=== PATIENT | male | born 1980 | race Caucasian/White ===

== ENCOUNTER 2017-11-25 11:11 | Outpatient (CLI) | payer OTHER | END 2017-11-25 11:12 | disposition home or self-care (01) | LOC: SC 11:11 | PROVIDERS: ATTEND Internal Medicine Pulmonary Disease | DX: G47.33 Obstructive sleep apnea (adult) (pediatric) (principal) | CPT/HCPCS: 99203; 99212 ==

== ENCOUNTER 2019-06-03 10:57 | Outpatient (CLI) | payer OTHER ==
[2019-06-03 12:08] VITALS: BP 120/80
--- NOTE | 2019-06-03 12:08 | SLEEP CARE CONSULTATION ---
Information from patient questionnaire entered by Odalis Ingram. I have reviewed and concur with the information entered by Odalis Ingram. This document represents the service I personally performed and the decisions made by me, Cecily Dukes, RN, MSN, STORE OPERATIONS ASSOCIATE. History of Present Illness Previous diagnosis: Moderate, Obstructive Sleep Apnea-Hypopnea Syndrome AHI: 24.1 Reason for CPAP/BiPAP follow up: annual Equipment type: CPAP Equipment obtained from: [employer] Mask style: Nasal (Wisp) Mask brand: Respironics Backup mask available: Yes Last cushion change: about 2 weeks ago CPAP Compliance Data - Data Reviewed with Patient Average duration of nightly device use: 7.7 Compliance rate %: 76 (180 days) Current pressure setting (cmH2O): 9 Humidity settin Average residual AHI: 0.8 Average large leak: 6.7 liters per minute Subjective Missed days of use due to: reports: [place] Patient concerns: reports: aerophagia (every morning, wakes with bloated and burps with relief ), nasal congestion, epistaxis (rare). denies: mask discomfort, air blowing in eyes, mask leak noise, condensation in mask/hose, dry mouth, nose, throat Observed to snore while using device: Yes (occasional ) Current pressure setting perceived as: comfortable On therapy, patient: reports: sleeping better, awakening more refreshed, being more awake and alert during the day, more rested overall. denies: drowsiness while driving Initial [place] Sleepiness Scale score: 17 Current [place] Sleepiness Scale score: 19 Allergies and Home Medications Known drug allergies: No Home medication list reviewed: Yes (cautioned of effects of pain med / muscle relaxant to apnea ) Allergy and home medication list: Naproxen 250mg tab three daily prn Flexeril 10mg tab one at bedtime prn Percocet 5-325mg tab one as needed for pain prn Review of Systems Review of systems same as previous: Yes Physical Exam Blood Pressure: 120/80 Cuff size: long Heart Rate: 93 O2 Saturation: 97 Height: 5 ft 10 in Weight: 230 lb Body Mass Index: 33.0 BMI Classification: Obesity Class 1 Impression and Plan 1. Obstructive Sleep Apnea-Hypopnea Syndrome, moderate , with good treatment compliance and good apnea control. On CPAP therapy, the patient has better sleep quality and is more rested overall. To reduce not using CPAP [place], I discussed battery options. A reference sheet on battery options that he could use was given. He is to turn off humidity when using this method to reduce power use. For aerophagia, I will reduce his CPAP pressure to 7cmH20. He is to contact me if still still symptoms or pressure uncomfortable. For his cleaning questions, I answered and gave a reference sheet of cleaning suggestions. For nasal congestion, he is to increase his humidity. He is also advised to showed at night to wash off body allergens and facilitate nasal drainage. He can also use saline nasal spray to clear nasal secretions. Patient's apnea severity and rationale for treatment to reduce apnea, improve sleep quality and reduce cardiovascular and cerebrovascular events was reviewed. I also reviewed the benefit of consistent device use of CPAP for gastric reflux. He was also cautioned not to drive when tired. I also discussed how his current weight gain and obesity can increase his apnea risk and overall health risks. He is advised to lose weight. * * Change CPAP pressure to 7 cmH2O * Adjust humidity * Implement cleaning methods discussed. * Notify me if snoring with mask or feeling that the pressure is too much or too little * Attempt to lose weight * Return for follow up in 2 months , or sooner if concerns arise I spent 100% of this 30 minute visit face to face with the patient with greater than 50% of this was spent time counseling the patient and coordination of care.
== END 2019-06-03 10:58 | disposition home or self-care (01) ==
LOC: SC 10:57
PROVIDERS: ATTEND Nurse Practitioner Family
DX: G47.33 Obstructive sleep apnea (adult) (pediatric) (principal); E66.9 Obesity, unspecified; Z68.33 Body mass index [BMI] 33.0-33.9, adult
CPT/HCPCS: 99212; 99214

== ENCOUNTER 2019-08-10 10:10 | Outpatient (CLI) | payer OTHER ==
--- NOTE | 2019-08-10 10:53 | SLEEP CARE CONSULTATION ---
Information from patient questionnaire entered by Odalis Ingram. I have reviewed and concur with the information entered by Odalis Ingram. This document represents the service I personally performed and the decisions made by me, Cecily Dukes, RN, MSN, MECHANICAL FACILITIES TECHNICIAN. History of Present Illness Previous diagnosis: Moderate, Obstructive Sleep Apnea-Hypopnea Syndrome AHI: 24.1 Reason for follow up: other (2 month ) Equipment type: CPAP Equipment obtained from: [employer] Mask style: Nasal Mask brand: hhgregg HPI additional information: The increase in humidity and use of saline nasal spray reduced nasal congestion. The CPAP pressure change was more comfortable. He is now able to use the CPAP longer and wakes more refreshed and more rested. He was also able to obtain a battery for use when no electricity. CPAP Compliance Data - Data Reviewed with Patient Average duration of nightly device use: 8.75 Compliance rate %: 97 (60 days) Current pressure setting (cmH2O): 7 Humidity settin Average residual AHI: 0.7 Average large leak: 3.5 liters per minute Subjective Patient concerns: denies: aerophagia, mask discomfort, air blowing in eyes, mask leak noise, condensation in mask/hose, nasal congestion, dry mouth, nose, throat, epistaxis Observed to snore while using device: No Current pressure setting perceived as: comfortable On therapy, patient: reports: sleeping better, awakening more refreshed, being more awake and alert during the day, more rested overall. denies: drowsiness while driving Initial [place] Sleepiness Scale score: 17 Current [place] Sleepiness Scale score: 11 Allergies and Home Medications Known drug allergies: Yes (oral contrast ) Home medication list reviewed: No (none) Physical Exam Blood Pressure: 110/80 Cuff size: long Heart Rate: 74 O2 Saturation: 97 Height: 5 ft 10 in Weight: 227 lb 3.2 oz Weight change since last visit: lost 3 pounds Body Mass Index: 32.5 BMI Classification: Obesity Class 1 Impression and Plan 1. Obstructive Sleep Apnea-Hypopnea Syndrome, moderate, with good treatment compliance and good apnea control. On CPAP therapy, the patient has better sleep quality and is more rested overall with changes implemented in reduction of pressure and control of nasal congestion. He is anxious to try out his new battery with working in remote locations. He is aware not to use the humidifier with the battery as it drwas too much power. He is also advised to use the saline nasal spray prior to CPAP for moisture. In addition, he is advised to make sure has spare filters for increase dust in [place] area. Patient's apnea severity and rationale for treatment to reduce apnea, improve sleep quality and reduce cardiovascular and cerebrovascular events was reviewed. * Continue CPAP pressure at 7cmH2O * Notify me if snoring with mask or feeling that the pressure is too much or too little * Attempt to lose weight * Call this office if any problems using CPAP * Return for follow up in 6 months , or sooner if concerns arise I spent 100% of this 15 visit face to face with the patient with greater than 50% of this was spent time counseling the patient and coordination of care.
[2019-08-10 10:54] VITALS: BP 110/80
== END 2019-08-10 10:11 | disposition home or self-care (01) ==
LOC: SC 10:10
PROVIDERS: ATTEND Nurse Practitioner Family
DX: G47.33 Obstructive sleep apnea (adult) (pediatric) (principal); E66.9 Obesity, unspecified; Z68.32 Body mass index [BMI] 32.0-32.9, adult
CPT/HCPCS: 99212; 99213

== ENCOUNTER 2020-07-18 10:13 | Outpatient (CLI) | payer OTHER ==
--- NOTE | 2020-07-18 11:31 | SLEEP CARE CONSULTATION ---
Information from patient questionnaire entered by Odalis Ingram. I have reviewed and concur with the information entered by Odalis Inrgam. This document represents the service I personally performed and the decisions made by me, Denae Felton MD, [facility]. History of Present Illness Service Date and Time: 07/18/2020 1013 Previous diagnosis: Moderate, Obstructive Sleep Apnea-Hypopnea Syndrome AHI: 24.1 (in 2016) Reason for follow up: annual (last seen ) Equipment type: CPAP Equipment obtained from: [employer] Mask style: Nasal Prior sleep studies: Yes Year and Where: 2016 - [facility] Sleep lab Type of Sleep Study: Polysomnography HPI additional information: HPI: Mr. Mckay is a 37 year old gentleman who had a sleep study at [facility] 2 years ago showing moderate obstructive sleep apnea-hypopnea with an AHI of 24.1 and rafa oxygen saturation of 88%. He was started on CPAP therapy. He wears a Respironics Wisp nasal mask. He finds the treatment very beneficial. No snore through the CPAP. His ResMed AirSense 10 is set at 7 cmH2O. The compliance data show usage in 346 out of the past 365 nights, averaging 8.3 hours a night. The > 4 hour compliance rate for the past 30 days is 92%. The residual AHI is 0.9 and average air leak is 1.1 L/minute. His durable medical supplier is [employer]. He reports improvement in his sleep quality, and that he wakes up feeling fresher in the morning and more awake/alert during the day. [place] Sleepiness Scale score is 8. CPAP Compliance Data - Data Reviewed with Patient Average duration of nightly device use: 8 hr 16 min Compliance rate %: 88 (180 days) Current pressure setting (cmH2O): 7 Humidity settin Average residual AHI: 1.0 Subjective Missed days of use due to: reports: family emergency, mask issues, travel Patient concerns: reports: mask leak noise, nasal congestion, dry mouth, nose, throat Initial [place] Sleepiness Scale score: 17 (in 2018) Current [place] Sleepiness Scale score: 8 Allergies and Home Medications Drug allergies reviewed: Yes Home medication list reviewed: Yes Review of Systems Review of systems same as previous: Yes Physical Exam Vital signs obtained and entered by: To minimize the risk of COVID-19 exposure, detailed exam was not performed. Height: 5 ft 10 in Weight: 182 lb Body Mass Index: 26.1 BMI Classification: Overweight Impression and Plan IMPRESSION: 1. Obstructive Sleep Apnea-Hypopnea Syndrome, moderate, with the patient continuing to do well on nasal CPAP therapy. He has good compliance and significant clinical improvement. The current pressure appears effective and comfortable. His mask fits well. Overall, he is very satisfied with treatment and plans to continue with it long-term. No adjustment is necessary today. PLAN: 1. Continue with CPAP set at 7 cmH2O. 2. Try to lose weight 3. Try ResMed N30i mask or Respironics DreamWear nasal cushion mask 4. Prescription made for supplies. 5. Return for follow up in a year or earlier if there is any problem. He will be eligible for a new machine at that time. Visit Type: In Office Time Spent with Patient (minutes): 15 Provider Statement: I spent 100% of the Face to Face Visit with the patient with greater than 50% spent counseling the patient and coordination of care.
== END 2020-07-18 10:14 | disposition home or self-care (01) ==
LOC: SC 10:13
PROVIDERS: ATTEND Internal Medicine Pulmonary Disease
DX: G47.33 Obstructive sleep apnea (adult) (pediatric) (principal); E66.3 Overweight; Z68.26 Body mass index [BMI] 26.0-26.9, adult
CPT/HCPCS: 99212; 99213

== ENCOUNTER 2022-08-27 10:38 | Outpatient (CLI) | payer OTHER ==
[2022-08-27 19:48] VITALS: BP 138/92
--- NOTE | 2022-08-27 19:48 | SLEEP CARE CONSULTATION ---
Information from patient questionnaire entered by Viviane Gracia. I have reviewed and concur with the information entered by Viviane Gracia. This document represents the service I personally performed and the decisions made by me, Denae Felton MD, [facility]. History of Present Illness Service Date and Time: 08/27/2022 1038 Previous diagnosis: Moderate, Obstructive Sleep Apnea-Hypopnea Syndrome AHI: 24.1 (in 2015) Reason for follow up: annual (LAST SEEN 07/2020) Equipment type: CPAP (RESMED SD CARD NEEDED) Equipment obtained from: [employer] Mask style: Nasal Prior sleep studies: Yes Year and Where: 2015 - [facility] Sleep lab Type of Sleep Study: Polysomnography HPI additional information: Mr. Mckay is a 37 year old gentleman who had a sleep study at [facility] 6 years ago showing moderate obstructive sleep apnea-hypopnea with an AHI of 24.1 and rafa oxygen saturation of 88%. He was started on CPAP therapy. He wears a Respironics Wisp nasal mask. He finds the treatment very beneficial. No snore through the CPAP. His ResMed AirSense 10 is set at 7 cmH2O. The compliance data show usage in 160 out of the past 180 nights, averaging 7.2 hours a night. The > 4 hour compliance rate for the past 30 days is 92%. The residual AHI is 0.9 and average air leak is 0.5 L/minute. His durable medical supplier is [employer]. He reports improvement in his sleep quality, and that he wakes up feeling fresher in the morning and more awake/alert during the day. Sleep Study - Results Type of Sleep Study: Polysomnography Prior sleep studies: Yes Year and Where: 2015 - [facility] Sleep lab Subjective Initial [place] Sleepiness Scale score: 17 (in 2018) Current [place] Sleepiness Scale score: 2 (08/27/22) Allergies and Home Medications Drug allergies reviewed: Yes Home medication list reviewed: Yes Allergy and home medication list: Allergies oral contrast Adverse Reaction (Uncoded 09/22/15 15:50) Hives Review of Systems Review of systems same as previous: Yes Physical Exam Vital signs obtained and entered by: VIVIANE Quintana MA Blood Pressure: 138/92 (LEFT ARM) Cuff size: regular Heart Rate: 61 O2 Saturation: 97 Height: 5 ft 10 in Weight: 235 lb Body Mass Index: 33.7 BMI Classification: Obese Impression and Plan IMPRESSION: 1. Obstructive Sleep Apnea-Hypopnea Syndrome, moderate, with the patient continuing to do well on nasal CPAP therapy. He has good compliance and significant clinical improvement. The current pressure appears effective and comfortable. His mask fits well. Overall, he is very satisfied with treatment and plans to continue with it long-term. No adjustment is necessary today. Because the CPAP is now older than the useful life of 5 years, I will order the patient a new one and make it an autoCPAP set between 4 and 8 cmH2O. PLAN: 1. Continue with CPAP set at 7 cmH2O. 2. Prescription made for an autoCPAP, heated humidifier, and related supplies. 3. Return for follow up after one month of using the CPAP. Prescriptions: Auto CPAP Follow up with Sleep Care in: 3 months Visit Type: In Office Time Spent with Patient (minutes): 15 Provider Statement: I spent 100% of the Face to Face Visit with the patient with greater than 50% spent counseling the patient and coordination of care.
== END 2022-08-27 10:39 | disposition home or self-care (01) ==
LOC: SC 10:38
PROVIDERS: ATTEND Internal Medicine Pulmonary Disease
DX: G47.33 Obstructive sleep apnea (adult) (pediatric) (principal); E66.9 Obesity, unspecified; Z68.33 Body mass index [BMI] 33.0-33.9, adult
CPT/HCPCS: 99212

== ENCOUNTER 2024-02-21 08:52 | Outpatient (CLI) | payer OTHER ==
--- NOTE | 2024-02-21 09:26 | Sleep Patient Instructions ---
Sleep Center Visit Summary - Patient Visit Information Reason for Visit: Annual follow-up - Patient Instructions Additional Instructions: You will continue with CPAP therapy with pressure set at 4-8 cmH2O. A supply prescription will be updated with your DME. We encourage you to continue to try to lose weight. Please follow up with the sleep care office in 1 year. - Clinic Information Contact: [facility] [address] [place] [address] [email or web address] T: [phone]
--- NOTE | 2024-02-21 09:32 | SLEEP CARE CONSULTATION ---
Information from patient questionnaire entered by Carmen Gracia. I have reviewed and concur with the information entered by Carmen Gracia. This document represents the service I personally performed and the decisions made by , Ellen Egan ARNP. History of Present Illness Service Date and Time: 02/21/2024 0852 Previous diagnosis: Moderate, Obstructive Sleep Apnea-Hypopnea Syndrome AHI: 24.1 (in 2015) Reason for follow up: annual (LAST SEEN 08/2022) Equipment type: CPAP (RESMED Airsense 11, s/u 12/2022, SD CARD NEEDED) Equipment obtained from: [employer] (getting supplies) Mask style: Nasal Backup mask available: Yes (old mask) Last cushion change: 10 days Prior sleep studies: Yes Year and Where: [facility] [place][note 2[place] - [facility] Sleep lab Type of Sleep Study: Polysomnography HPI additional information: GM DIEZ was diagnosed to have moderate, AHI 24.1, obstructive sleep apnea- hypopnea syndrome and returned today for CPAP therapy annual follow-up. Sleep Study - Results Type of Sleep Study: Polysomnography Prior sleep studies: Yes Year and Where: [facility]– [place][note 2] - [facility] Sleep lab CPAP Compliance Data - Data Reviewed with Patient Average duration of nightly device use: 7 hours 29 minutes Compliance rate %: 83 (155/180 days used) Current pressure setting (cmH2O): 4-8 Average residual AHI: 0.7 Central apnea: 0.2 Obstructive apnea: 0.3 Hypopnea: 0.1 Average large leak: 0.3 L/min Subjective Missed days of use due to: reports: travel Patient concerns: reports: aerophagia (little bit), mask discomfort (doesn't like stuff being on his face), air blowing in eyes, nasal congestion, dry mouth, nose, throat (occasional, does not use humidifier). denies: mask leak noise, condensation in mask/hose, epistaxis Observed to snore while using device: No Current pressure setting perceived as: comfortable On therapy, patient: reports: sleeping better, awakening more refreshed, being more awake and alert during the day, more rested overall. denies: drowsiness while driving Initial [place] Sleepiness Scale score: 17 (in 2018) Current [place] Sleepiness Scale score: 8 Allergies and Home Medications Known drug allergies: Yes (as listed) Drug allergies reviewed: Yes Home medication list reviewed: Yes (no changes) Allergy and home medication list: Allergies oral contrast Adverse Reaction (Uncoded 02/19/24 13:43) Hives Review of Systems Review of systems same as previous: Yes (no changes) Physical Exam Vital signs obtained and entered by: Ellen Quiroga NP Blood Pressure: 141/90 Cuff size: regular (left arm) Heart Rate: 78 O2 Saturation: 97 Height: 5 ft 10 in Weight: 223 lb 3.2 oz Weight change since last visit: 12 lb loss Body Mass Index: 32.0 BMI Classification: Obese Impression and Plan 1. Obstructive Sleep Apnea-Hypopnea Syndrome, moderate, with good treatment compliance and good apnea control. On CPAP therapy, the patient has better sleep quality and is more rested overall. He states he does not use the humidifier because it caused a lot more sinus drainage vomiting. He does get little bit dr y and has some nasal congestion but says it has been improved over time as he got used to it. He gets occasional bloating in the morning that resolves within an hour and is not uncomfortable. He does not like to have something on his face but he will continue to use his CPAP long-term because he knows he has sleep apnea and it will benefit his health to continue treatment. There is not adjustments needed today. Patient has significant improvement of his sleep apnea and is satisfied with current CPAP therapy. Patient's apnea severity and rationale for treatment to reduce apnea, improve sleep quality and reduce cardiovascular and cerebrovascular events was reviewed. 2. Obesity, unspecified. Currently patients BMI is 32. He has lost weight. Obesity increases the risk of apnea, CPAP pressure requirements and overall health risks especially cardiovascular and diabetes. Thus patient is advised to continue to try to lose weight. * Continue CPAP pressure at 4-8 cmH2O * Update supply prescription. * Notify me if snoring with mask or feeling that the pressure is too much or too little * Attempt to lose weight * Call this office if any problems using CPAP * Return for follow up in 12 months, or sooner if concerns arise Counseling Topics: Spare mask, Weight loss health impact Prescriptions: Device supplies Follow up with Sleep Care in: 1 year Visit Type: In Office Time Spent with Patient (minutes): 18 Provider Statement: I spent 100% of the Face to Face Visit with the patient with greater than 50% spent counseling the patient and coordination of care.
[2024-02-21 09:38] VITALS: BP 141/90; O2SAT 97
== END 2024-02-21 08:53 | disposition home or self-care (01) ==
LOC: SC 08:52
PROVIDERS: ATTEND Nurse Practitioner Family
DX: G47.33 Obstructive sleep apnea (adult) (pediatric) (principal); E66.9 Obesity, unspecified; Z68.32 Body mass index [BMI] 32.0-32.9, adult
CPT/HCPCS: 99212